=== PATIENT | male | born 1965 ===

== ENCOUNTER → 2016-07-07 | Day surgery (SDC) | payer BC, OTHER ==
[~2016-07-07] VITALS: Ht 180.3 cm; Wt 86.2 kg
[2016-07-07] VITALS (10 sets, daily range): BP systolic 107–127; BP diastolic 67–80
[~2016-07-07] MED LIST: ASPIR 8181 MG ORAL; Bupivacaine 0.25% Inj 30ml INJ ONE; COZAAR25 MG ORAL; CRESTOR10 M2 ORAL; Dexamethasone 4mg/ml vial ONE; EPINEPHrine 1mg/1ml Amp ONE; Glycopyrrolate 0.2mg/ml 1ml Vial ONE; Hydromorphone 0.5mg/0.5ml inj IVP PRN; Midazolam 2mg/2ml Inj ONE; Morphine Sulfate 2mg/ml Inj IVP PRN; NS Irrig 2000ml IRRIG ONE; NS Irrig 4000ml IRRIG ONE; Neostigmine 1mg/ml 10ml Inj ONE; Norco 5mg/325mg tab ORAL PRN; Propofol 10mg/ml 20ml IV ONE; Ropivacaine 5mg/ml Vial 20ml INJ ONE; Succinylcholine 20mg/ml 10ml vial ONE; Zemuron 50mg/5ml Inj IV ONE; ceFAZolin 1gm/50ml Premix 50 ML IV ONE; celeBREX 200mg Cap **SURGERY PATIENTS ONLY ORAL ONE; fentaNYL 100 mcg/2 mL IV ONE; oxyCONTIN 20mg tab ORAL ONE
--- NOTE | 2016-07-07 07:07 | Pre-Procedure Note/Attestation ---
Pre-Procedure Note/Attestation Complete Prior to Procedure Planned Procedure: left Procedure Narrative: shoulder arthroscopic removal calcium deposit, sad Indications for Procedure Pre-Operative Diagnosis: left shoulder calcific tendenitis, impingement Attestation I attest that I discussed the nature of the procedure; its benefits; risks and complications; and alternatives (and the risks and benefits of such alternatives ), prior to the procedure, with the patient (or the patient's legal technology sales representative). I attest that, if there was a reasonable possibility of needing a blood transfusion, the patient (or the patient's legal technology sales representative) was given the [facility] standardized written summary, pursuant to the [place] Blood Safety Act ([place] Health and Safety Code # 1645, as amended). I attest that I re-evaluated the patient just prior to the surgery and that there has been no change in the patient's H&P, except as documented below: LINDSAY MARTINEZ Jul 07, 2016 07:07
--- NOTE | 2016-07-07 07:08 | Operative Note - PDOC ---
Operative Note Operative Note Pre-op Diagnosis: left shoulder calcific tendenitis, impingement Procedure: left shoulder arthroscopy, sad Post-op Diagnosis: same as pre-op plus Operative Findings: consistent w/pre-op dx studies Anesthesia: general Specimen: none Complications: none Condition: stable Estimated Blood Loss: none Implant(s) used?: No LINDSAY MARTINEZ Jul 07, 2016 07:08
--- NOTE | 2016-07-07 12:03 | Anethesia Preoperative Eval ---
Anesthesia Pre-op PMH/ROS General Date of Evaluation: Jul 07, 2016 Time of Evaluation: 09:30 Anesthesiologist: BETTINA ASA Score: ASA 2 Mallampati Score Class I : Soft palate, uvula, fauces, pillars visible Class II: Soft palate, uvula, fauces visible Class III: Soft palate, base of uvula visible Class IV: Only hard plate visible Mallampati Classification: Class II Surgeon: JUAN Diagnosis: SHOULDER PAIN L Surgical Procedure: ARTHROSCOPY L SHOULDER Anesthesia History: none Family History: no anesthesia problems Allergies: Coded Allergies: No Known Allergies (Unverified , 07/06/16) Medications: see eMAR Past Medical History Cardiovascular: Reports: HTN Pulmonary: Denies: COPD, HARDEEP, asthma, other Gastrointestinal/Genitourinary: Denies: CRI, ESRD, GERD, other Neurologic/Psychiatric: Denies: CVA, TIA, dementia, depression/anxiety, other Endocrine: Denies: DM, hypothyroidism, other, steroids HEENT: Denies: CHILKAT (L), CHILKAT (R), cataract (L), cataract (R), glaucoma, other Hematology/Immune: Denies: DVT, anemia, bleeding disorder, other Musculoskeletal/Integumentary: Denies: DDD, DJD, OA, RA, edema, other Anesthesia Pre-op Phys. Exam Physician Exam Last Vital Signs Date Time Temp Pulse Resp B/P Pulse Ox O2 Delivery O2 Flow Rate FiO2 07/07/16 10:48 97.8 80 18 127/80 96 Room Air Constitutional: NAD Neurologic: CN 2-12 intact Cardiovascular: RRR Respiratory: CTA Gastrointestinal: S/NT/ND Airway Exam Mallampati Score: Class III MO: full ROM: full Teeth: intact Dentures: no lower, no upper Anesthesia Pre-op A/P Risk Assessment & Plan Assessment: ASA 2 Plan: GET WITH INTERSCALENE BLOCK Status Change Before Surgery: No Pre-Antibiotics Drug: ANCEF Given Within 1 Hr of Incision: Yes Time Given: 11:35 TEENA DUNBAR M.D. Jul 07, 2016 12:03
--- NOTE | 2016-07-07 12:05 | Immediate Post-Op Evaluation ---
Immediate Post-Op Evalulation Immediate Post-Op Evalulation Procedure: ARTHROSCOPY SHOULDER L Date of Evaluation: Jul 07, 2016 Time of Evaluation: 12:55 IV Fluids: 900 Blood Products: 0 Estimated Blood Loss: 0 Urinary Output: 0 Blood Pressure Systolic: 144 Blood Pressure Diastolic: 89 Pulse Rate: 70 Respiratory Rate: 12 O2 Sat by Pulse Oximetry: 98 Temperature (Fahrenheit): 100 Pain Score (1-10): 1 Nausea: No Vomiting: No Complications O Patient Status: awake, patent, none Hydration Status: adequate Drug: ANCEF Given Within 1 Hr of Incision: Yes Time Given: 11:35 TEENA DUNBAR M.D. Jul 07, 2016 12:05
--- NOTE | 2016-07-07 12:06 | 48 Hour Post Anesthesia Eval ---
Post Anesthesia Evaluation Procedure: ARTHROSCOPY SHOULDER L Date of Evaluation: Jul 07, 2016 Time of Evaluation: 14:10 Blood Pressure Systolic: 140 Pulse Rate: 77 Respiratory Rate: 13 Temperature (Fahrenheit): 98 O2 Sat by Pulse Oximetry: 99 Airway: patent Nausea: No Vomiting: No Pain Intensity: 2 Hydration Status: adequate Mental Status/LOC: patient returned to baseline Post-Anesthesia Complications: O Follow-up care needed: ready to discharge TEENA DUNBAR M.D. Jul 07, 2016 12:06
--- NOTE | 2016-07-07 21:38 | Operative Note - Dictated ---
DATE OF OPERATION: 07/07/2016 PREOPERATIVE DIAGNOSES: 1. Left shoulder calcific tendinitis. 2. Impingement syndrome. POSTOPERATIVE DIAGNOSES: 1. Left shoulder calcific tendinitis. 2. Small tear anterior labrum. 3. High-grade partial rotator cuff tear. 4. Impingement syndrome. PROCEDURES PERFORMED: 1. Left shoulder arthroscopy extensive intra-articular debridement. 2. Subacromial decompression bursectomy. 3. Removal of calcium deposit. 4. Bursal sided rotator cuff repair. SURGEON: Moisés Vang M.D. ANESTHESIA: Interscalene with general. INDICATION FOR PROCEDURE: The patient is a pleasant gentleman, who has had progressive pain for the last year. He had an MRI, which showed calcific tendinitis. He failed conservative treatment. He still had difficulty with all activities. He elected to undergo left shoulder arthroscopy, subacromial decompression, and removal of calcium deposit. Risks, limitations, expectations and complications related to the procedure were discussed in detail including continued pain, need for future surgery, risk of anesthesia, medical complications, DVT, PE, and mortality risk. All questions were addressed. Of note, when discussed with him then once the calcium deposit will be removed depending on the defect in the rotator cuff. He may actually need a formal repair. DESCRIPTION OF PROCEDURE: After informed consent was obtained, the patient was taken to the operative room and placed under interscalene general anesthesia. The patient was then carefully placed in the beach-chair position. Ancef was administered. Left shoulder was prepped and draped in a sterile manner. Time-out was performed. Posterior portal was injected with 0.25% Marcaine with epinephrine. Skin was incised. Trocar was introduced into the glenohumeral joint. Of note, he had a tear of the anterior labrum. A shaver was placed through the rotator interval and the debridement of the anterior labrum tear was performed. The cartilage appeared to be intact. The superior labrum was intact along the biceps tendon. The undersurface rotator cuff was intact. At this point, the camera was repositioned in the subacromial space. A complete bursectomy was performed. A coracoclavicular ligament was released and the undersurface of the acromion was identified. There is significant subacromial spur. The acromioplasty was started for lateral to medial compared from posterior to anterior. Once that was done, the bursectomy was completed posteriorly. At this point, looking from the subacromial space, the area of the calcium deposit was identified. Debridement of these calcium deposit was performed. Once the calcium was completely debrided, there was somewhat of a partial bursal sided rotator cuff tear. At this point, a margin convergence stitch was then placed using #2 FiberWire. Once the rotator cuff was repaired, the instruments were removed. Portal sites were closed with 3-0 Monocryl sutures. Steri-Strips and a sterile dressing were applied. The patient was awoken and taken to recovery room with stable vital signs. ESTIMATED BLOOD LOSS: Minimal. COMPLICATIONS: None. SPECIMENS: None. IMPLANT: Include #2 FiberWire. Moisés Vang M.D. DR: DICK JOB#: [id number] CC:
[2016-07-23 09:41] VITALS: BP 140/89
== END | disposition home or self-care (01) ==
LOC: SUR 08:50
DX: M75.32 Calcific tendinitis of left shoulder (principal); M75.42 Impingement syndrome of left shoulder; S43.492A Other sprain of left shoulder joint, initial encounter; X58.XXXA Exposure to other specified factors, initial encounter; Y92.89 Other specified places as the place of occurrence of the external cause; Y99.9 Unspecified external cause status; M75.112 Incomplete rotator cuff tear or rupture of left shoulder, not specified as traumatic; I10 Essential (primary) hypertension; M25.812 Other specified joint disorders, left shoulder
CPT/HCPCS: 29823; 29826; 29827; J0171; J0330; J0690; J1100; J2250; J2704; J2710; J2795; J3010; J3490; 94003; 94150